=== PATIENT | female | born 1950 | race Caucasian/White ===

== ENCOUNTER 2017-04-22 17:03 | Emergency (ER) | payer MEDICARE, MEDICAID ==
[~2017-04-22] VITALS: Ht 162.6 cm; Wt 49.9 kg
[~2017-04-22 17:03] MED LIST: ALBU2.5V11 HHN; BUDE10.2 INH; CARV3.12 PO; ESCI5TAB PO; FURO-145 PO; GABA100C PO; LEVE750T4 PO; LORA-259 PO; MAGN400O6 PO; MONT10TA22 PO; POTA10TA PO; TEMA15CA5 PO; TIOT18CA3 INH; TOPI25TA PO; TRAM300T2 PO; TYL2T PO; ZOFRAN PO
--- NOTE | 2017-04-22 17:25 | NUR ---
VERBAL ORDER LIDOCAINE 1 % FROM DR LOMAS
--- NOTE | 2017-04-22 17:30 | NUR ---
DR LOMAS AT BEDSIDE FOR I AND D
[2017-04-22] MEDS ORDERED: LIDOCAINE HCL/PF 1% 30 ML SDV ONE (17:37)
--- NOTE | 2017-04-22 17:43 | NUR ---
CALLED [facility] FOR ASSISTIVE TECHNOLOGY TRAINER, TRIP NUMBER #[id number] ETA [id number]
--- NOTE | 2017-04-22 18:04 | NUR ---
Patient discharged to home in stable condition. Written and verbal after care instructions given. Patient verbalizes understanding of instruction.
[2017-04-22 18:05] VITALS: BP 93/51
== END 2017-04-22 18:06 | disposition home or self-care (01) ==
LOC: ER 17:12
DX: L02.811 Cutaneous abscess of head [any part, except face] (principal); E11.9 Type 2 diabetes mellitus without complications; I48.91 Unspecified atrial fibrillation; I50.9 Heart failure, unspecified; J44.9 Chronic obstructive pulmonary disease, unspecified; Z88.0 Allergy status to penicillin; Z88.5 Allergy status to narcotic agent; Z88.1 Allergy status to other antibiotic agents; Z88.6 Allergy status to analgesic agent; Z88.8 Allergy status to other drugs, medicaments and biological substances
CPT/HCPCS: 10060; 99283; A4606; A6402; J3490; Z7610